=== PATIENT | female | born 1985 | race Caucasian/White ===

== ENCOUNTER 2020-12-09 11:08 | Inpatient (IN) ==
[2020-12-09] MEDS ORDERED: Famotidine 20 MG/2 ML VIAL IVP ONE (11:58)
[2020-12-09] MEDS ORDERED: Metoclopramide 10 MG/2 ML VIAL IVP ONE (11:58)
[2020-12-09 12:22] LABS: Basophils # 0.1 K/mcL (0.0-0.2); Basophils % 0.8 %; Eosinophils # 0.1 K/mcL (0.0-0.6); Eosinophils % 0.6 %; Hematocrit 44.3 % (35.3-44.9); Hemoglobin 14.5 g/dL (11.5-15.4); Lymphocytes # 1.2 K/mcL (0.6-4.6); Lymphocytes % 12.6 %; Mean Corpuscular HGB Conc 32.7 g/dL (31.6-35.5); Mean Corpuscular Hemoglobin 32.2 pg (28.0-33.3); Mean Corpuscular Volume 98.2 fL (83.0-100.0); Mean Platelet Volume 9.9 fL (9.4-12.4); Monocytes # 0.4 K/mcL (0.0-1.3); Monocytes % 4.4 %; Neutrophils # 7.9 K/mcL (1.6-8.9); Platelet Count 226 K/mcL (140-400); Red Blood Count 4.51 M/mcL (3.82-4.97); Red Cell Distribution Width 12.6 % (11.5-14.5); Segmented Neutrophils % 80.6 %; White Blood Count 9.8 K/mcL (4.3-11.1)
[2020-12-09] MEDS: Ringers Solution, Lactated 1,000 ML IVC SCH ×2 (12:26→13:06)
[2020-12-09 12:31] LABS: Amphetamine Screen,Urine Negative ng/mL (Cutoff=1000); Barbiturate Screen,Urine Negative ng/mL (Cutoff=200); Benzodiazepines Screen,Urine Negative ng/mL (Cutoff=200); Cannabinoid Screen,Urine Negative ng/mL (Cutoff = 50); Cocaine Screen,Urine Negative ng/mL (Cutoff= 300); Opiate Screen,Urine Negative ng/mL (Cutoff=300); Phencyclidine Screen,Urine Negative ng/mL (Cutoff=25)
[2020-12-09] MEDS ORDERED: Azithromycin 500 MG in 0.9 % Sodium Chloride 250 ML IVPB ONE (12:43)
[2020-12-09] MEDS ORDERED: *HR* Morphine Sulfate/PF 10 MG/10 ML AMPUL ONE (12:50)
[2020-12-09] MEDS ORDERED: *HR* FentaNYL (PF) 100 MCG/2 ML VIAL ONE (12:51)
[2020-12-09] MEDS ORDERED: CeFAZolin 2,000 MG/50 ML BAG IVPB ONE (13:00)
[2020-12-09] MEDS ORDERED: Ondansetron 4 MG/2 ML VIAL ONE (13:57)
[2020-12-09] MEDS ORDERED: Naloxone 0.4 MG/ML INJ IVP PRN (14:05)
[2020-12-09] MEDS ORDERED: *HR* FentaNYL (PF) 100 MCG/2 ML VIAL IVP PRN (14:05)
[2020-12-09] MEDS ORDERED: Promethazine 6.25 MG in Water for inj. (sterile) 20 ML IVPB PRN (14:05)
[2020-12-09] MEDS ORDERED: Ondansetron 4 MG/2 ML VIAL IVP PRN ×2 (14:05→18:42)
[2020-12-09] MEDS ORDERED: Acetaminophen IV 1,000 MG/100 ML BAG IVPB ONE (14:20)
[2020-12-09] MEDS ORDERED: Oxytocin 20 units/ LR 1000 mL 20 UNIT/1,000 ML BAG IVC SCH (18:42)
[2020-12-09] MEDS ORDERED: Metoclopramide 10 MG/2 ML VIAL IVP PRN (18:42)
[2020-12-09] MEDS: *HR* OxyCODONE Immed Rel 5 MG TABLET PO PRN (19:45)
[2020-12-10] MEDS: *HR* OxyCODONE Immed Rel 5 MG TABLET PO PRN ×4 (00:16→20:07)
[2020-12-10] MEDS: Acetaminophen 325 MG TABLET PO SCH ×4 (00:16→20:07)
[2020-12-10] MEDS: Ibuprofen 600 MG TABLET PO SCH ×4 (00:17→20:07)
[2020-12-10 05:56] LABS: Basophils % 0.3 %; Eosinophils # 0.1 K/mcL (0.0-0.6); Eosinophils % 1.6 %; Hematocrit 33.4 % (35.3-44.9); Lymphocytes # 1.3 K/mcL (0.6-4.6); Lymphocytes % 14.1 %; Mean Corpuscular HGB Conc 32.3 g/dL (31.6-35.5); Mean Corpuscular Hemoglobin 32.4 pg (28.0-33.3); Mean Corpuscular Volume 100.3 fL (83.0-100.0); Mean Platelet Volume 9.6 fL (9.4-12.4); Monocytes # 0.5 K/mcL (0.0-1.3); Monocytes % 5.8 %; Platelet Count 168 K/mcL (140-400); Red Blood Count 3.33 M/mcL (3.82-4.97); Red Cell Distribution Width 12.6 % (11.5-14.5); Segmented Neutrophils % 77.2 %
[2020-12-10 05:58] LABS: Hemoglobin 10.8 g/dL (11.5-15.4)
[2020-12-10] MEDS: Prenatal Vit/FA 1 EACH TABLET PO SCH (07:55)
[2020-12-10] MEDS: Simethicone 80 MG TAB.CHEW PO PRN (20:07)
[2020-12-11] MEDS: Acetaminophen 325 MG TABLET PO SCH ×3 (00:30→11:50)
[2020-12-11] MEDS: Ibuprofen 600 MG TABLET PO SCH ×3 (00:30→11:50)
[2020-12-11] MEDS: Simethicone 80 MG TAB.CHEW PO PRN (05:25)
[2020-12-11] MEDS: Prenatal Vit/FA 1 EACH TABLET PO SCH (07:37)
[2020-12-11] MEDS ORDERED: Lanolin 7 G OINT...G. TP PRN (07:50)
[2020-12-11 08:18] VITALS: BP 109/61
[2020-12-11] MEDS: *HR* OxyCODONE Immed Rel 5 MG TABLET PO PRN (11:50)
== END 2020-12-11 14:27 | disposition home or self-care (01) | DRG 539 ==
LOC: 1NENULAB 11:08 → EDSTATUS 12:00 → 1NENUOBS 17:35
PROVIDERS: ADMIT Obstetrics & Gynecology; ATTEND Obstetrics & Gynecology